=== PATIENT | female | born 1990 | race Caucasian/White ===

== ENCOUNTER 2021-11-06 18:29 | Emergency (ER) | payer MEDICAID, SELFPAY ==
--- NOTE | 2021-11-06 19:51 | PC.NURSE ---
pt called for triage at 1850, no response. pt called at 1950 for triage, no response. pt left prior to seeing provider.
== END 2021-11-07 04:33 | disposition left against medical advice (07) ==
LOC: ANHED 19:56
DX: Z53.21 Procedure and treatment not carried out due to patient leaving prior to being seen by health care provider (principal)
CPT/HCPCS: 99199